=== PATIENT | male | born 1990 ===

== ENCOUNTER 2019-11-04 11:53 | Emergency (ER) | payer OTHER ==
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
--- NOTE | 2019-11-04 12:53 | CT ---
Chest:CT thoracic spine Technique: Multiple axial sections through the thoracic spine were obtained. Reconstructed coronal and sagittal images were obtained. Findings: Mild disc space narrowing is scattered within the thoracic spine. Mild scattered endplate osteophytes are also noted within the thoracic spine. Vertebral body heights are maintained. No fracture is seen. No abnormal subluxation is identified. No paravertebral soft tissue swelling is identified. Impression: 1. Minimal degenerative change as noted above. 2. No acute fracture or abnormal subluxation is seen. Diagnostic code #2 This report was dictated in [place] Standard Time
--- NOTE | 2019-11-04 12:53 | CT ---
CT cervical spine Technique: Multiple axial sections were obtained from above C1 inferiorly to the bottom of T2. Reconstructed sagittal and coronal images were obtained. Comparison: No prior cervical spine imaging is available. Findings: Mild disc space narrowing is noted at C5-C6. Anterior osteophytes are noted at C4-C5, C5-C6 and C6-C7. Vertebral body heights are maintained. Posterior skull base is intact. Vertebral bodies and posterior arches are intact. No fracture is seen. No bony central or bony neural foraminal stenosis is seen. No abnormal subluxation is appreciated. Impression: 1. Mild degenerative change. 2. No acute fracture or acute subluxation is seen. Diagnostic code #2 This report was dictated in [place] Standard Time
== END 2019-11-04 13:33 | disposition home or self-care (01) ==
LOC: MW.ED 11:53
DX: S23.3XXA Sprain of ligaments of thoracic spine, initial encounter (principal); F17.210 Nicotine dependence, cigarettes, uncomplicated; V43.52XA Car driver injured in collision with other type car in traffic accident, initial encounter; Y92.410 Unspecified street and highway as the place of occurrence of the external cause
CPT/HCPCS: 72125; 72125-26; 72128; 72128-26; 99284; 99284-25

== ENCOUNTER 2024-02-17 17:53 | Emergency (ER) | payer SELFPAY ==
[2024-02-17 18:04] LABS: HEMATOCRIT 42.3 % (42.0-52.0); HEMOGLOBIN 14.7 g/dL (14.0-18.0); MEAN CORPUSCULAR HEMOGLOBIN 31.5 pg (28.0-32.0); MEAN CORPUSCULAR HGB CONC 34.8 g/dL (32.0-36.0); MEAN CORPUSCULAR VOLUME 90.6 fL (83.0-99.0); MEAN PLATELET VOLUME 9.3 fL (9.4-12.4); PLATELET COUNT,PLT 245 K/uL (150-400); RED BLOOD CELL COUNT 4.67 M/uL (4.52-5.90)
[2024-02-17] MEDS: Sodium Chloride 0.9% 1,000 ML IV ONE (18:24)
[2024-02-17] MEDS: Naloxone 0.4 MG/ML SDV IVPUSH ONE ×2 (18:24)
[2024-02-17 18:26] LABS: A/G RATIO 1.1 (0.9-1.6); ALBUMIN 3.9 g/dL (3.4-5.0); BILIRUBIN TOTAL 0.4 mg/dL (0.2-1.0); CALCIUM 8.3 mg/dL (8.5-10.1); CARBON DIOXIDE,CO2 25.8 mmol/L (21.0-32.0); CREATININE 1.2 mg/dL (0.8-1.3); EST CRCL DRUG DOSING (CG) 81.09 mL/min; POTASSIUM,K 3.1 mmol/L (3.5-5.1); PROTEIN TOTAL,TP 7.5 g/dL (6.4-8.2)
[2024-02-17 18:49] LABS: SEG NEUTROPHILS PERCENT MAN 27 % (41-71)
[2024-02-17 18:50] LABS: BASOPHILS ABSOLUTE MAN 0.09 K/uL (0.00-0.20); BASOPHILS PERCENT MAN 1 % (0-1); EOSINOPHILS ABSOLUTE MAN 0.36 K/uL (0.00-0.45); EOSINOPHILS PERCENT MAN 4 % (0-6); LYMPHOCYTES ABSOLUTE MAN 5.43 K/uL (1.00-4.80); LYMPHOCYTES PERCENT MAN 61 % (24-44); MONOCYTES ABSOLUTE MAN 0.62 K/uL (0.00-0.80); MONOCYTES PERCENT MAN 7 % (0-8)
[2024-02-17 19:40] LABS: AMPHETAMINES SCREEN, URINE NEGATIVE (CUTOFF=500); BARBITURATE SCREEN,URINE NEGATIVE (CUTOFF=200); BENZODIAZEPINES SCREEN,URINE NEGATIVE (CUTOFF=150); BUPRENORPHINE SCREEN,URINE NEGATIVE (CUTOFF=10); METHADONE SCREEN, URINE NEGATIVE (CUTOFF=200); METHAMPHETAMINES SCREEN, URINE NEGATIVE (CUTOFF=500); OXYCODONE SCREEN,URINE NEGATIVE (CUT0FF=100); PCP SCREEN,URINE NEGATIVE (CUTOFF=25); THC SCREEN,URINE 20 NG/ML PRESUMPTIVE POSITIVE (CUTOFF=50)
[2024-02-17] MEDS: Ondansetron 4 MG/2 ML SDV IVPUSH ONE (21:56)
== END 2024-02-17 22:09 | disposition home or self-care (01) ==
LOC: MW.ED 17:53
DX: T50.7X1A Poisoning by analeptics and opioid receptor antagonists, accidental (unintentional), initial encounter (principal); F19.90 Other psychoactive substance use, unspecified, uncomplicated; Z75.8 Other problems related to medical facilities and other health care
CPT/HCPCS: 36415; 71045; 80053; 80305; 80307; 85025; 93005; 96361; 96374; 96375; 99285; J2310; J2405; J7030; 99284